=== PATIENT | female | born 1990 | race Caucasian/White ===

== ENCOUNTER 2016-03-16 18:28 | Emergency (ER) | payer MEDICAID ==
[~2016-03-16] VITALS: Ht 157.5 cm; Wt 69.0 kg
[~2016-03-16 18:28] MED LIST: ACET325T45 PO; LIDO30JE5 TOP
[2016-03-16 18:59] VITALS: Ht 157.5 cm; Wt 69.0 kg
[2016-03-16] MEDS ORDERED: ONDANSETRON 4 MG INJ IV STA (21:52)
[2016-03-16] MEDS ORDERED: FAMOTIDINE 20 MG INJ IV STA (21:52)
[2016-03-16] MEDS ORDERED: morphine 4 MG/ML VIAL IV STA (21:52)
--- NOTE | 2016-03-16 22:03 | ERD ---
ER Documentation Chief Complaint Date/Time DATE: 03/16/16 TIME: 22:00 Chief Complaint abd. pain, N/V/D x 2 days, 6 mths ago, hx blood clot, on coumadin HPI This is a 25-year-old female who presents to the emergency department today complaining of abdominal pain and nausea vomiting diarrhea for the past 2 days. Patient states that 6 months ago she had a and at some point developed a blood clot in her leg. States she is currently on Coumadin. States she has taken Tylenol for the pain. Denies any dysuria, chest pain or shortness of breath. ROS All systems reviewed and are negative except as per history of present illness. Medications Home Meds Active Scripts Acetaminophen* (Tylophen*) 500 Mg Capsule, 1 CAP PO Q6H Y for PAIN AND OR ELEVATED TEMP, #30 CAP Prov:GRADY QUINN PA-C 03/17/16 Loperamide Hcl* (Imodium*) 2 Mg Capsule, 2 MG PO .AFTER EA LOOSE BM Y for DIARRHEA, #10 TAB Prov:GRADY QUINN PA-C 03/17/16 Hydrocodone/Acetaminophen ([place] 5-325 Tablet) 1 Each Tablet, 1 TAB PO Q6H Y for PAIN, #12 TAB Prov:GRADY QUINN PA-C 03/17/16 Ondansetron Hcl* (Zofran*) 4 Mg Tablet, 4 MG PO Q6H for NAUSEA AND/OR VOMITING, #30 TAB Prov:GRADY QUINN PA-C 03/17/16 Acetaminophen* (Acetaminophen*) 325 Mg Tablet, 325 MG PO Q8 Y for PAIN AND OR ELEVATED TEMP, #20 TAB Prov:ALEC MENDEZ DO 12/16/14 Lidocaine 2% Jelly* (Xylocaine 2% Jelly*) 1 Applic Jel, 1 APPLIC TOP BID, #1 TUB Prov:ALEC MENDEZ DO 12/16/14 Allergies Allergies: Coded Allergies: No Known Allergy (Unverified , 12/02/14) PMhx/Soc Hx Alcohol Use: No Hx Substance Use: No Hx Tobacco Use: No Physical Exam Vitals Vital Signs Date Time Temp Pulse Resp B/P Pulse Ox O2 Delivery O2 Flow Rate FiO2 03/16/16 18:59 98.3 73 18 116/75 99 Physical Exam Const: No acute distress Head: Atraumatic Eyes: Normal Conjunctiva ENT: Normal External Ears, Nose and Mouth. Neck: Full range of motion..~ No meningismus. Resp: Clear to auscultation bilaterally Cardio: Regular rate and rhythm, no murmurs Abd: Soft, gastric tenderness non distended. Normal bowel sounds. No Right upper quadrant tenderness. No right lower quadrant tenderness. No left lower quadrant tenderness. Skin: No petechiae or rashes Back: No midline or flank tenderness Ext: No cyanosis, or edema Neur: Awake and alert Psych: Normal Mood and Affect Result Diagram: 03/16/16222903/16/162229 Results 24 hrs Laboratory Tests Test 03/16/16 22:30 Activated Partial Thromboplast Time 26.8Sec Alanine Aminotransferase (ALT/SGPT) 25IU/L Albumin 4.6g/dl Albumin/Globulin Ratio 1.35 Alkaline Phosphatase 79IU/L Anion Gap 20 Aspartate Amino Transf (AST/SGOT) 20IU/L Basophils # 0.010^3/ul Basophils % 0.0% Blood Morphology Comment Blood Urea Nitrogen 6mg/dl Calcium Level 9.6mg/dl Carbon Dioxide Level 21mmol/L Chloride Level 100mmol/L Creatinine 0.46mg/dl Direct Bilirubin 0.00mg/dl Eosinophils # 0.010^3/ul Eosinophils % 0.0% Globulin 3.40g/dl Glucose Level 104mg/dl Hematocrit 37.2% Hemoglobin 11.7g/dl INR International Normalized Ratio 0.97 Indirect Bilirubin 0.3mg/dl Lipase 65U/L Lymphocytes # 1.010^3/ul Lymphocytes % 11.1% Mean Corpuscular Hemoglobin 24.1pg Mean Corpuscular Hemoglobin Concent 31.5g/dl Mean Corpuscular Volume 76.4fl Mean Platelet Volume 9.7fl Monocytes # 0.510^3/ul Monocytes % 5.3% Neutrophils # 7.610^3/ul Neutrophils % 83.6% Nucleated Red Blood Cells # 0.010^3/ul Nucleated Red Blood Cells % 0.0/100WBC Platelet Count 30059^3/UL Potassium Level 4.0mmol/L Prothrombin Time 12.9Sec Prothrombin Time Ratio 1.0 Red Blood Count 4.8710^6/ul Red Cell Distribution Width 18.3% Sodium Level 137mmol/L Total Bilirubin 0.3mg/dl Total Protein 8.0g/dl Urine Bacteria FEW Urine Bilirubin NEGATIVE Urine Clarity HAZY Urine Color LT. YELLOW Urine Glucose 0.1%% Urine Hemoglobin 3+ Urine Ketones NEGATIVE Urine Leukocyte Esterase TRACE Urine Microscopic RBC 10-25/HPF Urine Microscopic WBC 0-2/HPF Urine Nitrite NEGATIVE Urine Specific [place] <=1.005 Urine Squamous Epithelial Cells MODERATE Urine Total Protein NEGATIVE Urine Urobilinogen 0.2 E.U./dL Urine pH 6.0 White Blood Count 9.110^3/ul Current Medications Medications (Trade) Dose Ordered Sig/Erika Route PRN Reason Start Time Stop Time Status Last Admin Dose Admin Morphine Sulfate (morphine) 4 mg ONCE STAT IV 03/16/16 21:52 03/16/16 21:57 DC 03/16/16 22:17 Ondansetron HCl (Zofran Inj) 4 mg ONCE STAT IV 03/16/16 21:52 03/16/16 21:57 DC 03/16/16 22:18 Famotidine (Pepcid Iv) 20 mg ONCE STAT IV 03/16/16 21:52 03/16/16 21:57 DC 03/16/16 22:18 DIAGNOSTIC IMAGING REPORT Patient: ARMANDO DURAN : 1990 Age: 25 Sex: F [id number] DOS: 03/16/16 2152 Ordering MD: GRADY QUINN PA-C Location: [facility] Room/Bed: PROCEDURE: US Abdomen (right upper quadrant). CLINICAL INDICATION: Right upper quadrant abdomen pain. TECHNIQUE: Multiple real-time longitudinal and transverse images of the right upper quadrant of the abdomen were acquired utilizing a curved array transducer. Images were reviewed on a high-resolution PACS workstation. COMPARISON: None FINDINGS: The liver is normal in size and echogenicity. There is no focal hepatic lesion. Color Doppler and pulsed Doppler sonography demonstrate normal antegrade flow in the portal vein. The gallbladder is normal with no stones or wall thickening. There is no pericholecystic fluid collection. The bile ducts are normal with the common bile duct measuring 2.6 mm in diameter. The visualized portions of the pancreas are unremarkable with obscuration of the tail of the pancreas. No free fluid is present. The right kidney measures 10.0 cm. There is normal echogenicity of the right kidney. There is no perinephric fluid collection. No hydronephrosis, mass, or calculus is seen. IMPRESSION: 1. Unremarkable right upper quadrant abdomen ultrasound. RPTAT: QQ .Norberto Addison MD, Date Time Electronically viewed and signed by .Norberto Addison MD, MD on 03/16/2016 23:06 .R/ CC: GRADY QUINN PA-C Patient: ARMANDO DURAN : 1990 Age: 25 Sex: F MR #: [id number] DOS: 03/16/16 2152 Ordering MD: GRADY QUINN PA-C Location: [facility] Room/Bed: PROCEDURE: CT abdomen and pelvis without intravenous contrast. CLINICAL INDICATION: Pain. TECHNIQUE: CT of the abdomen/pelvis was performed utilizing axial images with reconstructions in sagittal and coronal planes. The administered radiation dose is CTDI 12.1 mGy, DLP 681 mGy-cm. COMPARISON: No pertinent prior examinations were submitted for comparison. FINDINGS: Visualized Chest: The visualized lung bases are clear. Abdomen: The liver, spleen, pancreas, gallbladder,and adrenal glands are unremarkable. The kidneys are without hydronephrosis. No definite urinary calculi are seen. There is no evidence of bowel obstruction. The appendix is normal. No intra- abdominal free air is seen. There is no evidence of intra-abdominal adenopathy or free fluid. Pelvis: There is no evidence of pelvic adenopathy. The uterus and ovaries are without enlargement. The urinary bladder is unremarkable. There is no pelvic free fluid. There is dilatation of the left ovarian vein, with some prominent veins in the pelvis. Osseous structures: Unremarkable. IMPRESSION: Dilated left ovarian and pelvic veins suggestive of pelvic congestion syndrome in the appropriate clinical settings. RPTAT: HIKT .Jaguar Sanchez MD, Date Time Electronically viewed and signed by .Jaguar Sanchez MD, on 03/17/2016 00:38 .T/ CC: GRADY QUINN PA-C Procedures/MDM This is a 25-year-old female who Presents to the emergency department today for abdominal pain, nausea vomiting and diarrhea for the past 2 days. Patient has a history of blood clot in her right leg for which she is on Coumadin. Patient had epigastric tenderness on physical exam however given the patient's recent history of a blood clot did obtain both a right upper quadrant ultrasound as well as a CT abdomen and pelvis noncontrast. I also obtained laboratory work. Laboratory work shows elevated white blood cell count. Her hemoglobin is very mildly decreased. Her platelets are within normal limits. Her electrolytes are within normal limits. Her liver function is within normal limits. Her lipase is normal limits. Her coags are within normal limits. UA shows trace leukocyte Estrace. Urine test is negative and I have low suspicion for ectopic , tubo-ovarian abscess, ovarian torsion. Right upper quadrant ultrasound unremarkable. Ears no free fluid. Gallbladder is normal with no stones or wall thickening. There is no pericholecystic fluid collection. CT abdomen and pelvis noncontrast shows dilated left ovarian and pelvic pain suggestive of pelvic congestion syndrome in the appropriate clinical setting. No evidence of bowel obstruction. Appendix is normal. Liver, spleen, pancreas and gallbladder adrenal glands are all unremarkable. Kidneys are without hydronephrosis. There is no definite urinary calculi seen. No evidence of pelvic adenopathy. The uterus and ovaries are without enlargement. The urinary bladder is unremarkable. There is no pelvic free fluid. There is dilation of the left ovarian vein with some prominent veins in the pelvis. Given the patient's CT findings of pelvic congestion syndrome and her history of DVT I did place a call to the labor started micro paleontologist , who indicated that pelvic congestion syndrome is a chronic problem and not an acute problem and patient will have chronic pelvic pain. On physical exam patient has no pelvic pain and she has no left lower quadrant or right lower quadrant pain. There is no further workup that needs to be done at this time. Low suspicion for any acute surgical abdomen. Patient a follow-up with her outpatient primary care physician or CLINICAL REVIEWER. Spinal results to the patient. Symptoms at this time consistent with abdominal pain of uncertain etiology otherwise related to nausea vomiting and diarrhea. Patient will be given a prescription for [place] and Tylenol as well as Zofran for nausea and Imodium for diarrhea. She was given Zofran, Pepcid, morphine here in the emergency department symptoms improved. At this time the patient is stable for discharge and outpatient management. Patient should follow up with their PCP in the next 1-2 days. They may return to the emergency department sooner for any persistent or worsening of symptoms. Patient understood and agreed with the plan. Discussed patient with Dr. Blanca and is in agreement with the plan. Departure Diagnosis: Primary Impression: Abdominal pain Abdominal location: epigastric Qualified Code: R10.13 - Epigastric pain Additional Impression: Nausea vomiting and diarrhea Condition: GRADY Fuller PA-C Mar 16, 2016 22:03
--- NOTE | 2016-03-16 23:06 | RADRPT ---
PROCEDURE: US Abdomen (right upper quadrant). CLINICAL INDICATION: Right upper quadrant abdomen pain. TECHNIQUE: Multiple real-time longitudinal and transverse images of the right upper quadrant of th e abdomen were acquired utilizing a curved array transducer. Images were reviewed on a high-resoluti on PACS workstation. COMPARISON: None FINDINGS: The liver is normal in size and echogenicity. There is no focal hepatic lesion. Color Doppler and pulsed Doppler sonography demonstrate normal a ntegrade flow in the portal vein. The gallbladder is normal with no stones or wall thickening. There is no pericholecystic fluid júnior ection. The bile ducts are normal with the common bile duct measuring 2.6 mm in diameter. The visualized portions of the pancreas are unremarkable with obscuration of the tail of the pancrea s. No free fluid is present. The right kidney measures 10.0 cm. There is normal echogenicity of the right kidney. There is no perinephric fluid collection. No hydronephrosis, mass, or calculus is seen. IMPRESSION: 1. Unremarkable right upper quadrant abdomen ultrasound. RPTAT: QQ .Norberto Addison MD, MD Date Time Electronically viewed and signed by .Norberto Addison MD, on 03/16/2016 23:06 .R/
[2016-03-16 23:17] LABS: ADD UMIC YES; URINE BILIRUBIN (Dip) NEGATIVE (NEGATIVE); URINE BLOOD (Dip) 3+ (NEGATIVE); URINE COLOR LT. YELLOW (YELLOW); URINE KETONES (Dip) NEGATIVE (NEGATIVE); URINE LEUKOCYTE ESTERASE (Dip) TRACE (NEGATIVE); URINE NITRITE (Dip) NEGATIVE (NEGATIVE); URINE TOTAL PROTEIN (Dip) NEGATIVE (NEGATIVE); URINE UROBILINOGEN (Dip) 0.2 E.U./dL (0.1-1.0)
[2016-03-16 23:25] LABS: BACTERIA,URINE FEW; SQUAMOUS EPITHELIAL CELL,UR MODERATE
[2016-03-16 23:59] LABS: HEMATOCRIT 37.2 % (37.0-47.0); HEMOGLOBIN 11.7 g/dl (12.0-16.0); LYMPHOCYTES % 11.1 % (15.0-51.0); MEAN CORPUSCULAR HEMOGLOBIN 24.1 pg (29.0-33.0); MEAN CORPUSCULAR HGB CONC 31.5 g/dl (32.0-37.0); MEAN CORPUSCULAR VOLUME 76.4 fl (82.0-101.0); MEAN PLATELET VOLUME 9.7 fl (7.4-10.4); MONOCYTE # 0.5 10^3/ul (0.3-0.9); MONOCYTES % 5.3 % (0.0-11.0); NEUTROPHIL # 7.6 10^3/ul (1.6-7.5); NEUTROPHILS % 83.6 % (39.0-77.0); PLATELET COUNT 367 10^3/UL (140-440); RED BLOOD COUNT 4.87 10^6/ul (4.20-5.40); RED CELL DISTRIBUTION WIDTH 18.3 % (11.5-14.5); UNCORRECTED WBC 9.1 10^3/ul (4.8-10.8); WHITE BLOOD COUNT 9.1 10^3/ul (4.8-10.8)
[2016-03-17 00:01] LABS: CONDITION 1; LH ANALYZER COMMENTS 1
[2016-03-17 00:06] LABS: INR 0.97; PARTIAL THROMBOPLASTIN TIME 26.8 Sec (25.0-35.0); PROTIME 12.9 Sec (12.2-14.2)
[2016-03-17 00:09] LABS: ALBUMIN 4.6 g/dl (3.3-4.9)
[2016-03-17 00:12] LABS: ALBUMIN/GLOBULIN RATIO 1.35; BILIRUBIN,INDIRECT 0.3 mg/dl (0-1.1); BILIRUBIN,TOTAL 0.3 mg/dl (0.2-1.3); CREATININE 0.46 mg/dl (0.44-1.00)
[2016-03-17 00:13] LABS: CALCIUM 9.6 mg/dl (8.4-10.2)
--- NOTE | 2016-03-17 00:38 | RADRPT ---
PROCEDURE: CT abdomen and pelvis without intravenous contrast. CLINICAL INDICATION: Pain. TECHNIQUE: CT of the abdomen/pelvis was performed utilizing axial images with reconstructions in s agittal and coronal planes. The administered radiation dose is CTDI 12.1 mGy, DLP 681 mGy-cm. COMPARISON: No pertinent prior examinations were submitted for comparison. FINDINGS: Visualized Chest: The visualized lung bases are clear. Abdomen: The liver, spleen, pancreas, gallbladder,and adrenal glands are unremarkable. The kidneys are without hydronephrosis. No definite urinary calculi are seen. There is no evidence of bowel obstruction. The appendix is normal. No intra-abdominal free air is seen. There is no evidence of intra-abdominal adenopathy or free fluid. Pelvis: There is no evidence of pelvic adenopathy. The uterus and ovaries are without enlargement. The uri nary bladder is unremarkable. There is no pelvic free fluid. There is dilatation of the left ovarian vein, with some prominent veins in the pelvis. Osseous structures: Unremarkable. IMPRESSION: Dilated left ovarian and pelvic veins suggestive of pelvic congestion syndrome in the appropriate cl inical settings. RPTAT: HIKT .Jaguar Sanchez MD, Date Time Electronically viewed and signed by .Jaguar Sanchez MD, on 03/17/2016 00:38 .T/
[2016-03-17] MEDS ORDERED: LOPE2CAP PO (01:35)
[2016-03-17] MEDS ORDERED: ONDA4TAB8 PO (01:35)
[2016-03-17] MEDS ORDERED: HYDR-906 PO (01:35)
[2016-03-17] MEDS ORDERED: ACET500C5 PO (01:36)
[2016-03-17 01:46] VITALS: BP 115/72; PULSE 57; RESP 16; TEMP 98.2
== END 2016-03-17 01:47 | disposition home or self-care (01) ==
LOC: FTE 18:28
DX: R10.13 Epigastric pain (principal); R19.7 Diarrhea, unspecified; R10.2 Pelvic and perineal pain
CPT/HCPCS: 36415; 74176; 76705; 80053; 81001; 81003; 83690; 85025; 85610; 85730; 96374; 96375; J2270; J2405; Z7502; Z7610